=== PATIENT | female | born 1990 ===

== ENCOUNTER 2023-10-02 11:55 | Inpatient (IN) | payer OTHER ==
[~2023-10-02] VITALS: Ht 162.6 cm; Wt 65.8 kg
[2023-10-08 05:48] LABS: HEMATOCRIT 39.6 % (36.0-45.00); HEMOGLOBIN 12.9 g/dL (12.0-15.00); MEAN CELL VOLUME 89.8 fL (80.00-100.00); MEAN CORPUSCULAR HEMOGLOBIN 29.3 pg (27.00-32.0); MEAN CORPUSCULAR HGB CONC 32.7 g/dl (32.0-36.0); PLATELET COUNT 177 K/uL (150-450); RED BLOOD COUNT 4.41 M/uL (4.00-6.00); RED CELL DISTRIBUTION WIDTH 13.9 % (11.5-14.5)
[2023-10-08 06:04] LABS: BILIRUBIN TOTAL 0.63 mg/dL (0.3-1.2); CALCIUM 8.9 mg/dL (8.5-10.1); CREATININE SERUM 0.46 mg/dL (0.55-1.02); GFR 154.58; GLOBULINA 3.2 G/DL (2.4-3.5); INR < 0.93; PARTIAL THROMBOPLASTIN TIME 24.7 SECONDS (22.0-34.0); POTASSIUM 3.73 mEq/L (3.5-5.1); PROTHROMBIN TIME 9.4 SECONDS (9.0-11.5); TOTAL PROTEIN 6.2 gm/dL (6.4-8.2)
[2023-10-08] MEDS ORDERED: PRENATAL TABLE1 EAC1 PO (06:09)
[2023-10-09 07:35] LABS: HEMATOCRIT 32.1 % (36.0-45.00); HEMOGLOBIN 10.9 g/dL (12.0-15.00); MEAN CELL VOLUME 89.8 fL (80.00-100.00); MEAN CORPUSCULAR HEMOGLOBIN 30.5 pg (27.00-32.0); RED BLOOD COUNT 3.57 M/uL (4.00-6.00)
[2023-10-09 07:58] LABS: PLATELET COUNT 142 K/uL (150-450)
== END 2023-10-10 11:27 | disposition home or self-care (01) | DRG 807 ==
LOC: OB/GYN 10-08 04:48 → LDR 10-08 04:48 → OB/GYN 10-08 09:36
PROVIDERS: ADMIT Obstetrics & Gynecology; ATTEND Obstetrics & Gynecology
PROC: 10E0XZZ Delivery of Products of Conception, External Approach (ICD-10-PCS; principal; 2023-10-08)
PROC: 4A1HXCZ Monitoring of Products of Conception, Cardiac Rate, External Approach (ICD-10-PCS; 2023-10-08)
DX: O99.824 Streptococcus B carrier state complicating childbirth (principal); Z37.0 Single live birth; Z3A.39 39 weeks gestation of pregnancy; Z20.822 Contact with and (suspected) exposure to COVID-19

== ENCOUNTER 2025-08-05 11:22 | Outpatient (CLI) | payer OTHER ==
[~2025-08-05 11:22] MED LIST: PRENATAL TABLE1 EAC1 PO
== END 2025-08-05 11:29 | disposition home or self-care (01) ==
LOC: RAD 11:22 → EDBD 11:22 → RAD 11:29
PROVIDERS: ATTEND Pediatrics
DX: S52.502A Unspecified fracture of the lower end of left radius, initial encounter for closed fracture (principal)